=== PATIENT | male | born 1960 | race African-American/Black ===

== ENCOUNTER 2017-05-27 12:31 | Emergency (ER) | payer MEDICAID ==
[~2017-05-27] VITALS: Ht 180.3 cm; Wt 73.0 kg
[2017-05-27] MEDS ORDERED: ASPI-1159 PO (12:47)
[2017-05-27] MEDS ORDERED: LOPE2TAB26 PO (12:47)
[2017-05-27] MEDS ORDERED: CLON0.1T PO (12:47)
[2017-05-27] MEDS ORDERED: BUSP5TAB3 PO (12:47)
[2017-05-27] MEDS ORDERED: MAGN400C PO (12:47)
[2017-05-27] MEDS ORDERED: HYDR100T26 PO (12:47)
[2017-05-27] MEDS ORDERED: NIFE100P10 MC (12:47)
[2017-05-27] MEDS ORDERED: DOCU-138 PO (12:47)
[2017-05-27] MEDS ORDERED: PROP10TA10 GT (12:47)
[2017-05-27] MEDS ORDERED: LIP40 PO (12:47)
[2017-05-27] MEDS ORDERED: ISOS30TA6 PO (12:47)
[2017-05-27 17:26] VITALS: BP 152/99
== END 2017-05-27 18:19 | disposition home or self-care (01) ==
LOC: ER 12:31
DX: S00.81XA Abrasion of other part of head, initial encounter (principal); I10 Essential (primary) hypertension; Z86.73 Personal history of transient ischemic attack (TIA), and cerebral infarction without residual deficits; Z79.82 Long term (current) use of aspirin; W01.0XXA Fall on same level from slipping, tripping and stumbling without subsequent striking against object, initial encounter; Y93.01 Activity, walking, marching and hiking; Y92.89 Other specified places as the place of occurrence of the external cause; Y99.8 Other external cause status
CPT/HCPCS: 70450; 93005; 99284